=== PATIENT | male | born 1995 | race Caucasian/White ===

== ENCOUNTER 2021-03-11 11:24 | Emergency (ER) | payer MEDICARE, MEDICAID, SELFPAY ==
[2021-03-11 12:11] VITALS: BP 137/77; BP 140/70; PULSE 83; PULSE 92; RESP 16; TEMP 37.3; O2SAT 100; BMI 29.5
[2021-03-11 13:08] VITALS: BP 119/76; PULSE 89; RESP 20; O2SAT 99
--- NOTE | 2021-03-11 13:41 | ED.GENADULT ---
HPI - General Adult General Chief complaint: General Medical Stated complaint: ANXIETY,FEELS ILL S/P TASTING GAS FROM LAWNMOWER Time Seen by Provider: 03/11/21 13:35 Source: patient, family and EMS Mode of arrival: EMS Limitations: no limitations History of Present Illness HPI narrative: 25-year-old male presenting to the ED via EMS after he was mowing the lawn for approximately 2 hours when he poured some of the gas into the lawnmower and accidentally got some gas onto his hands and he drink some water and realized that he could smell the gas and was nervous because he thought the water tasted like gas and he became very concerned from this. There was no gas in the actual water just on his hands. He reports he feels nauseous since the incident otherwise he denies any other symptoms complaints or concerns at this time. Related Data Previous Rx's Medication Instructions Recorded ondansetron HCl 4 mg tablet 4 mg PO Q8H PRN #14 tab 03/11/21 (Zofran) Allergies Allergy/AdvReac Type Severity Reaction Status Date / Time No Known Allergies Allergy Verified 03/11/21 13:41 Review of Systems Review of Systems: Constitutional : No Weight loss, No Fever, No Chills, No Night Sweats, No Fatigue, No Malaise ENT/Mouth : No Hearing loss, No Ear Pain, No Nasal Congestion, No Sinus Pain, No Hoarseness, No sore throat, No Rhinorrhea, No Swallowing Difficulty Eyes: No Eye Pain, No Swelling, No Redness, No Foreign Body, No Discharge, No Vision Changes Cardiovascular : No Chest Pain, No SOB, No Dyspnea on Exertion, No Orthopnea, No Edema, No Palpitations Respiratory : No Cough, No Sputum, No Wheezing, No Smoke Exposure, No Dyspnea Gastrointestinal : Positive Nausea, No Vomiting, No Diarrhea, No Constipation, No abdominal Pain, No Hematochezia, No Melena Genitourinary : no irregular bleeding, No Dysuria, No Urinary Frequency, No Hematuria, No Urinary Incontinence, No Urgency, No Flank Pain, No Urinary Flow Changes, No Hesitancy Musculoskeletal : No joint pain, No Myalgias, No Joint Swelling Skin : No Skin Lesions, No rash Neuro : No Weakness, No Numbness, No Paresthesias, No Loss of Consciousness, No Dizziness, No Headache Psych : Positive anxiety, No Depression, No SI/HI/AH/VH, No Social Issues, Heme/Lymph: No Bruising, No Bleeding,No Lymphadenopathy Endocrine : No Polyuria, No Polydipsia, No Temperature Intolerance Yes all other systems are reviewed and are negative [facility] Past Medical History Attestation statement: The following information was validated with the patient. Medical History Anxiety Schizo affective schizophrenia Social History Social History Patient Tobacco Use Status: Never used Tobacco Use of substances other than those prescribed or required for medical reasons: No Advance Directives: No Advance Directives Information Provided: No Physical Exam Vital Signs: Vital Signs: Last Vital Signs Temp 99.2 F 03/11/21 12:11 Pulse 89 03/11/21 13:08 Resp 20 03/11/21 13:08 BP 119/76 03/11/21 13:08 Pulse Ox 99 03/11/21 13:08 Body Mass Index 29.5 vital signs have been reviewed as normal and appeared to be correct. Blood pressure normal. Heart rate normal. Respiration rate normal. Temperature normal. Oxygen saturation normal. Appearance: Alert. Oriented X3. No acute distress. Head: Normal external exam. Normocephalic. Atraumatic. No Toribio signs noted. No raccoon eyes noted Eyes: PERRLA. EOMI. Conjunctiva and sclera normal. Eyelids normal. ENT: EAC normal. TM's Normal. Pharynx normal. Uvula midline. Moist mucous membranes. No trismus noted. No drooling noted. No muffled voice noted. Neck: Normal inspection. Neck supple. FROM. No adenopathy. Thyroid Normal. No meningeal signs. No neck mass noted. CVS: Normal heart rate and rhythm. Heart sound normal. Pulses normal throughout. No murmurs/rales/gallops. Respiratory: No respiratory distress. Painless inspiration. Breath sounds normal. No wheezes/rales/rhonchi noted. Chest nontender. No accessory muscle usage noted or decreased air movement noted. Abdomen: Soft and nontender. Bowel sounds normal in all 4 quadrants. No distention noted. No organomegaly noted. No visible injury noted. Back: No CVA tenderness. Full range of motion noted. No rashes/lesion/induration/fluctuance or signs of infection noted. Skin: Skin warm and dry. Normal skin color. Normal skin turgor. No rashes/lesions/lacerations noted. Extremities: No lower extremity edema. Extremities exhibit normal range of motion. Extremities nontender. Neuro: Oriented X 3. No motor deficit. No sensory deficit. Reflexes normal. Normal steady gait. No focal neuro deficits noted. Vascular: + radial pulses/+ 2 distal pedal pulses/+2 dorsalis pedis b/l. Normal cap refill. No cyanosis noted to upper extremity nails and lower extremity toes nails. Course Course Course Narrative: 25-year-old male presenting to the ED with an anxiety/panic attack that occurred prior to arrival after pouring gas into the lawnmower and accidentally spilling it on his hands than drinking water he thought he might have drank some gas although there was no gas in the actual water. He reports he does have nausea. Otherwise denies any other symptoms. At this time patient denies any SI/HI/auditory visual sensation or thoughts of self injury. He reports his symptoms are improving. Therefore will give 4 mg of Zofran and DC home with instructions return if any new or worsening symptoms to follow up with primary care provider. Patient and family at bedside understand and agree with this plan. Medical Decision Making Medical Records Medical records reviewed: Yes I reviewed the patient's medical records. Lab Data Lab results reviewed: Yes I reviewed the patient's lab results. Discharge Plan Discharge Clinical Impression: Anxiety Patient Disposition: Home, Self-Care Instructions: Anxiety (ED) Prescriptions: New ondansetron HCl [Zofran] 4 mg tablet 4 mg PO Q8H PRN (Reason: nausea and vomiting) Qty: 14 RF: 0 Referrals: Del Leon MD [Primary Care Provider] - 2 days Stand Alone Forms: Work/School Release Print Language: [place]al[place]
[2021-03-11] MEDS: Ondansetron ODT 4 MG TAB.RAPDIS TRANSLINGU (13:52)
== END 2021-03-11 13:59 | disposition home or self-care (01) ==
PROVIDERS: Emergency Provider Emergency Medicine Emergency Medical Services; PCP Internal Medicine
DX: F41.1 Generalized anxiety disorder (principal); F43.0 Acute stress reaction; Z79.899 Other long term (current) drug therapy
CPT/HCPCS: 99283; 99284